=== PATIENT | male | born 1945 | race Caucasian/White ===

== ENCOUNTER 2021-09-27 11:53 | Emergency (ER) | payer OTHER ==
[2021-09-27 12:42] VITALS: BP 125/76; PULSE 52; TEMP 97.4
== END 2021-09-27 15:07 | disposition home or self-care (01) ==
LOC: JER 11:53
DX: S82.001A Unspecified fracture of right patella, initial encounter for closed fracture (principal); S76.111A Strain of right quadriceps muscle, fascia and tendon, initial encounter; W10.9XXA Fall (on) (from) unspecified stairs and steps, initial encounter
CPT/HCPCS: 73564-TC-RT-FY; 99283-25

== ENCOUNTER 2021-10-06 06:39 | Day surgery (SDC) | payer OTHER ==
[2021-10-02 11:51] VITALS: BMI 28.1
[2021-10-06] MEDS ORDERED: MIDAZOLAM HCL 2 MG/2 ML SINGLE DOSE VIAL ONE (07:20)
[2021-10-06] MEDS ORDERED: PROPOFOL 20 ML ONE (07:20)
[2021-10-06] MEDS ORDERED: BUPIVACAINE LIPOSOME/PF (EXPAREL) 266 MG/20 ML VIAL ONE (07:34)
[2021-10-06] MEDS ORDERED: SODIUM CHLORIDE 0.9% P/F 10 ML VIAL IJ ONE (07:34)
[2021-10-06] MEDS ORDERED: BUPIVACAINE HCL 50 ML ONE (07:34)
[2021-10-06] MEDS ORDERED: ceFAZolin SODIUM 1 GM VIAL ONE (08:29)
[2021-10-06] MEDS ORDERED: ONDANSETRON 4 MG/2 ML VIAL ONE ×2 (08:35→09:42)
[2021-10-06] MEDS ORDERED: DEXAMETHASONE SOD PHOSPHATE 4 MG/1 ML VIAL ONE (08:35)
[2021-10-06] MEDS ORDERED: ONDANSETRON 4 MG/2 ML VIAL IVPUSH PRN (10:07)
[2021-10-06] MEDS ORDERED: oxyCODONE HCL 5 MG TABLET PO PRN (10:07)
[2021-10-06] MEDS ORDERED: LACTATED RINGERS SOLUTION 1,000 ML IV SCH (10:15)
[2021-10-06 11:20] VITALS: PULSE 62; TEMP 97.2
[2021-10-06 11:37] VITALS: BP 136/69
== END 2021-10-06 12:15 | disposition home or self-care (01) ==
LOC: FASU 06:39
PROVIDERS: ATTEND Orthopaedic Surgery Sports Medicine
PROC: 0LQL0ZZ Repair Right Upper Leg Tendon, Open Approach (ICD-10-PCS; principal; 2021-10-06 08:50)
DX: S76.111A Strain of right quadriceps muscle, fascia and tendon, initial encounter (principal); X58.XXXA Exposure to other specified factors, initial encounter; Y93.9 Activity, unspecified; Y92.9 Unspecified place or not applicable
CPT/HCPCS: 94760